=== PATIENT | male | born 1970 | race Caucasian/White ===

== ENCOUNTER 2017-03-30 17:27 | Emergency (ER) | payer BC ==
--- NOTE | 2017-03-30 20:29 | DIAGNOSTIC IMAGING REPORT ---
PROCEDURE: XR CHEST 2 VIEW INDICATION: CHEST PAIN TECHNIQUE: Two views. COMPARISON: None. FINDINGS: The cardiomediastinal contour and central vasculature are within normal limits. The lungs are clear without focal consolidation, pleural effusion, or pneumothorax. The visualized osseous structures are intact. IMPRESSION: 1. Normal chest.
--- NOTE | 2017-03-30 21:48 | ED NURSING NOTES ---
Clinical Report - Nurses [facility] [place] [place] [address] 03/30/2017 17:28 Patient: ABHIJIT CONKLIN TRIAGE Triage time 17:34 Mar 30 2017. Acuity: LEVEL 3. Chief Complaint: ABDOMINAL PAIN, NAUSEA, VOMITING and DIARRHEA. CEASAR COMA SCORE: [place] Coma Scale: 15- eyes open spontaneously (4); best verbal response- oriented x 4 (5); best motor response- obeys commands (6). --17:44 Anitha Marcos R.N. 17:36 03/30/17. BP: 176/98. HR: 89. RR: 18. O2 saturation: 100%. Temp: 98.0 F. Pain level now 0/10. --17:44 Anitha Marcos R.N. Weight: 127.4 kg stated. Height/Length: 71 inches Per Patient. BMI: 39.2. --17:37 Anitha Marcos R.N. Medications Lisinopril Oral. --17:38 Anitha Marcos R.N. Metoprolol Tartrate Oral. --17:40 Anitha Marcos R.N. FLUoxetine HCl Oral. --17:40 Anitha Marcos R.N. [place] 3 Oral. --17:40 Anitha Marcos R.N. Allergies No Known Drug Allergy. --17:40 Anitha Marcos R.N. History Arrived by private vehicle. Historian: patient. Accompanied by family. ( 2 days ago felt out of sorts. This am started to have nausea and vomiting.). He has had nausea, vomiting and diarrhea. Last oral intake by patient was dinner. SOCIAL HX: Never smoker. Regular alcohol use; consumes two liquor. No drug use. No recent travel. No known contact with a sick individual. SELF HARM ASSESSMENT: A self harm assessment was performed. The patient answered "yes" to the question "Have you recently felt down, depressed, or hopeless?" and "no" to the question "Do you have thoughts of harming or killing yourself?". FALL RISK ASSESSMENT: Fall risk assessment completed. No fall risk identified. NUTRITIONAL RISK ASSESSMENT: The nutritional risk assessment revealed no deficiencies. FUNCTIONAL ASSESSMENT: Functional assessment: no impairments noted. LEARNING NEEDS ASSESSMENT: The learning needs assessment revealed no barriers. ABUSE ASSESSMENT: Abuse assessment: (yes) The patient was asked "Do you feel safe in your home?". SKIN INTEGRITY ASSESSMENT: Skin integrity risk assessment completed. No skin integrity risk identified. --17:44 Anitha Marcos R.N. PROBLEMS: Nephrolithiasis. Afib . High blood pressure . Renitis . --17:42 Anitha Marcos R.N. ADDITIONAL SURGERIES: Testicle removal . Vasectomy. --17:42 Anitha Marcos R.N. Interventions ID band on patient. --17:44 Anitha Marcos R.N. PHYSICAL ASSESSMENT To room via wheelchair. GENERAL / NEURO / PSYCH: Appears anxious. ( Very anxious having attacks while triaged). HEENT: Mucous membranes are pink. RESPIRATORY: Respirations not labored. Breath sounds within normal limits. ( Fast breathing). CVS: Normal sinus rhythm noted. Capillary refill less than 2 seconds. GI / : The patient has had nausea and diarrhea. Emesis noted. Bowel sounds within normal limits. SKIN: Skin is warm and dry. --17:45 Anitha Marcos R.N. NURSING PROGRESS NOTES The initial plan of care for this patient includes an assessment with efforts to address patient positioning, appropriate ambient lighting and comfortable environmental temperature. Pulse oximeter and NIBP monitor placed on patient. Patient gowned. Head of bed elevated 75 degrees. Reassurance given. Call light placed in reach. Side rails up x 1. Bed placed in lowest position. Brakes of bed on. --17:45 Anitha Marcos R.N. 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 --17:46 Anitha Marcos R.N. EKG time: (3918). EKG was ordered, performed by a elvira and shown to the PA. --18:00 Dilip Israel ER Tech1 17:56 03/30/2017 Site #1 started via IV in the left antecubital space with an 20g angiocath, with aseptic technique and good blood return; one attempt. Blood drawn: rainbow set. Labeled in the presence of the patient and sent to the lab. Saline lock flushed with 10 mL saline. --18:01 Anitha Marcos R.N. 18:01 03/30/2017 Started bag #1 1000 mL IV Fluids IV NS (Saline); at 999 mL/hr over 1 hour(s) via site #1 via IV pump. Allergies verified and confirmed 5 rights. IV patency established. IV site checked: no pain, redness, or swelling. IV flushed thoroughly pre- and post-medication administration. --18:01 Anitha Marcos R.N. 18:02 03/30/2017 Zofran (Ondansetron HCl) IVP 4 mg given over 2 minute(s) via site #1. Allergies verified and confirmed 5 rights. IV patency established. IV site checked: no pain, redness, or swelling. IV flushed thoroughly pre- and post-medication administration. --18:02 Anitha Marcos R.N. 18:11 03/30/2017 Ativan (LORazepam) IVP 2 mg given over 2 minute(s) via site #1. Allergies verified, confirmed 5 rights and sedative warning given to the patient and patient's family. IV patency established. IV site checked: no pain, redness, or swelling. IV flushed thoroughly pre- and post-medication administration. --18:11 Anitha Marcos R.N. 18:11 03/30/17. BP: 154/96. HR: 86. RR: 22. O2 saturation: 100%. --18:12 Anitha Marcos R.N. 18:30 03/30/2017 Ativan IVP Response: no adverse reaction the patient feels better. 03/30/2017 18:30 BP: 163/84. HR: 94. RR: 18. O2 saturation: 97%. --20:55 Ingrid Gomez R.N. 18:30 03/30/2017 Zofran IVP Response: no adverse reaction. --20:56 Ingrid Gomez R.N. 18:49 03/30/2017 Magnesium Sulfate (Magnesium Sulfate in D5W) IVP 2 gm given over 2 hour(s) via site #1. Allergies verified and confirmed 5 rights. IV patency established. IV site checked: no pain, redness, or swelling. IV flushed thoroughly pre- and post-medication administration. --18:49 Anitha Marcos R.N. 18:49 03/30/2017 IV Fluids IV NS Discontinued: bag #1 infused. Total amount infused: 990 mL. IV patency established. IV site checked: no pain, redness, or swelling. IV flushed thoroughly. --18:49 Anitha Marcos R.N. 18:52 03/30/17. BP: 163/84. HR: 94. RR: 18. O2 saturation: 97%. 18:30 03/30/17. BP: 163/84. HR: 94. RR: 18. O2 saturation: 97%. 18:25 03/30/17. BP: 157/91. HR: 85. RR: 18. O2 saturation: 96%. 18:11 03/30/17. BP: 154/96. HR: 86. RR: 22. O2 saturation: 100%. --18:53 Anitha Marcos R.N. ( Patient states feels much better since anxiety medication given.). --18:54 Anitha Marcos R.N. 19:19 03/30/17. Care transferred and report received (from Evangelista Boss RN). --19:19 Ingrid Gomez R.N. 19:56 03/30/17. --19:56 Ingrid Gomez R.N. 19:55 03/30/17. BP: 157/87. HR: 103. RR: 16. O2 saturation: 98%. Temp: deferred. Pain level now: 0/10. --19:56 Ingrid Gomez R.N. 20:43 03/30/17. ( lab at bedside drawing troponin). --20:43 Ingrid Gomez R.N. 20:51 03/30/17. BP: 160/92 taken on the right arm, while sitting. HR: 98. RR: 15. O2 saturation: 96%. Temp: deferred. Pain level now: 0/10. --20:52 Ingrid Gomez R.N. 20:52 03/30/17. --20:52 Ignrid Gomez R.N. 20:54 03/30/2017 Magnesium Sulfate IVP Response: no adverse reaction (dc'd at 22:52). 03/30/2017 20:51 BP: 160/92. HR: 98. RR: 15. O2 saturation: 96%. Pain level now: 0/10. --20:54 Ingrid Gomez R.N. DISPOSITION / DISCHARGE 21:59 03/30/17. No learning barriers present. Discharge instructions provided and reviewed with the patient and spouse. Reviewed warnings. Reviewed medication(s). Treatments reviewed. Reviewed referrals. Patient and spouse verbalized understanding. Written instructions provided in [place]. The patient was discharged home and accompanied by spouse. He left the Emergency Department ambulatory and via private vehicle. Spouse driving. --21:59 Ingrid Gomez R.N. 21:58 03/30/17. BP: 165/94. HR: 102. RR: 15. O2 saturation: 97%. Temp: deferred. Pain level now: 0/10. --21:59 Ingrid Gomez R.N. Locked/Released at 03/31/2017 3:52 by Ingrid Gomez R.N.
--- NOTE | 2017-03-30 21:48 | ED CLINICAL REPORT ---
Clinical Report - Physicians/Mid Levels [facility] [address] [place] [address] 03/30/2017 17:28 Patient: ABHIJIT CONKLIN Time Seen: 17:54 Rafael 2016. Arrived- By private vehicle. Historian- patient. HISTORY OF PRESENT ILLNESS Chief Complaint: nausea. Is still present. (patient reports vague symptoms of abdominal cramping off and on, nausea, sweats, Since this morning. Had somewhat similar symptoms 2 days previously, that resolved. Patient has a history of anxiety, does take fluoxetine, has been taking central last 9 months. Patient with history of high blood pressure, takes medications at night, has not missed any doses. History of A. fib that resolved with cardioversion, metoprolol, one time about 3 or 4 years previously. patient denies headache.). REVIEW OF SYSTEMS No cough, abdominal pain or vomiting. All systems otherwise negative, except as recorded above. PAST HISTORY Father/ grandfather with h/o MD around age 70. Problems: Nephrolithiasis. Afib . High blood pressure . Renitis . Additional Surgeries: Testicle removal . Vasectomy. Medications: [place] 3 Oral. FLUoxetine HCl Oral. Metoprolol Tartrate Oral. Lisinopril Oral. Allergies: No Known Drug Allergy. ADDITIONAL NOTES The nursing notes have been reviewed. PHYSICAL EXAM Vital Signs: 03/30/2017 17:36 BP: 176/98. HR: 89. RR: 18. O2 saturation: 100%. Temp: 98.0 F. Appearance: Alert. No acute distress. ENT: Ears normal. Nose normal. Pharynx normal. CVS: Heart sounds normal. Respiratory: No respiratory distress. Breath sounds normal. Skin: Skin warm. Normal skin color. Neuro: Oriented X 3. No motor deficit. No sensory deficit. LABS, X-RAYS, AND EKG EKG: EKG time: (1758). No acute process. No acute ischemia. Rate: 82. Normal P waves. Normal KYLIE. Normal QRS complex. Normal axis. Chest X-ray: (IMPRESSION: 1. Normal chest. Electronically Final signed by:Ashley Murray MD 03/30/2017 8:29:36 PM). Laboratory Tests: CBC w Diff: (DALTON: 03/30/2017 17:45) ( [facility] 03/30/2017 18:02) Final results Test Result Flag Units (Reference) WHITE BLOOD COUNT 9.2 K/uL (4.5-11.5) RED BLOOD COUNT 5.13 M/uL (4.50-5.90) HEMOGLOBIN 16.1 gm/dL (13.5-17.5) HEMATOCRIT 47.5 % (41.0-53.0) MEAN CELL VOLUME 93 fL (80-100) MEAN CORPUSCULAR HGB 32 pg (26-34) MEAN CORPUSCULAR HGB CONC 34 g/dL (31-37) RED CELL DISTRIBUTION WIDTH 13.9 % (11.6-14.8) PLATELET COUNT 391 K/uL (150-400) NEUTROPHIL % 54.8 % (50-75) LYMPH % 34.4 % (25-40) MONO % 9.5 % (3-14) EOSINOPHIL % 1.1 % (0-4) BASOPHIL % 0.2 % (0-2) PT with INR: (DALTON: 03/30/2017 17:45) ( [facility] 03/30/2017 18:06) Final results Test Result Flag Units (Reference) INR 1.0 (0.8-1.2) Low Intensity Therapy: INR 1.5-2.0 PT range 18.5-23.1Mod.Intensity Therapy: INR 2.0-3.0 PT range 23.1-31.5High Intensity Therapy: INR 2.5-3.5 PT range 27.4-35.5High Intensity Therapy 2: INR 3.0-4.0 PT range 31.5-39.3 APTT 28 SECONDS (24-34) Troponin-I: (DALTON: 03/30/2017 20:35) ( [facility] 03/30/2017 21:45) Final results Test Result Flag Units (Reference) TROPONIN I <0.05 L ng/mL (0.00-1.5) TROPONIN REFERENCE RANGE:<0.1 NEGATIVE0.1-1.5 INDETERMINANT>1.5 POSITIVE Magnesium: (DALTON: 03/30/2017 20:35) ( [facility] 03/30/2017 21:38) Final results Test Result Flag Units (Reference) MAGNESIUM 1.9 mg/dL (1.8-2.4) CHEM 13 PANEL: (DALTON: 03/30/2017 17:45) ( [facility] 03/30/2017 19:17) Final results Test Result Flag Units (Reference) GLUCOSE 146 H mg/dL (70-110) BUN 14 mg/dL (7-18) CREATININE 1.1 mg/dL (0.6-1.3) Estimated GFR >60 mL/min Estimated GFR- >60 mL/min Note: Persistent reduction over 3 months in eGFR<60 mL/min/1.73 m2 defines CKD. Patients with eGFR values>=60 mL/min/1.73 m2 may also have CKD if evidence ofpersistent proteinuria. Additional information may be foundat www.kidney.org. SODIUM 140 mmol/L (136-145) POTASSIUM 3.8 mmol/L (3.5-5.1) CHLORIDE 99 mmol/L (98-107) CARBON DIOXIDE 22 mmol/L (21-32) CALCIUM 9.9 mg/dL (8.5-10.1) TOTAL PROTEIN 8.5 H g/dL (6.4-8.2) ALBUMIN 4.5 g/dL (3.3-5.0) BILIRUBIN, TOTAL 1.1 H mg/dL (0.0-1.0) ALKALINE PHOSPHATASE 120 H U/L (46-116) AST (SGOT) 119 H U/L (15-37) ALT (SGPT) 101 H U/L (12-78) MAGNESIUM 1.2 L mg/dL (1.8-2.4) CPK 251 U/L (24-260) TROPONIN I 0.08 ng/mL (0.00-1.5) TROPONIN REFERENCE RANGE:<0.1 NEGATIVE0.1-1.5 INDETERMINANT>1.5 POSITIVE . PROGRESS AND PROCEDURES Course of Care: patient history in the anxious, hyperventilating upon arrival to the emergency department, and his symptoms improved. Patient has no abdominal tenderness, his exam is unremarkable and benign, negative neuro exam, denies headache. 2 sets of troponin are unremarkable, EKG unremarkable, chest x-ray unremarkable. No signs of systemic disease processes, this may be anxiety related. Patient with history of hypertension, slightly elevated here, he takes nighttime medications and has not taken his nighttime medications today. 03/30/2017 21:58 BP: 165/94. HR: 102. RR: 15. O2 saturation: 97%. Pain level now: 0/10. 03/30/2017 20:51 BP: 160/92. HR: 98. RR: 15. O2 saturation: 96%. Pain level now: 0/10. Patient is stable. Physical exam findings are improved. Symptoms better. Patient/family counseled. Disposition: Discharged. Condition: good. CLINICAL IMPRESSION Hypertension. Moderate hypomagnesemia. Anxiety reaction. INSTRUCTIONS (YOUR LABS looked great today). Prescription Medications: Ativan 0.5 mg: take 1 orally every 12 hours for 5 days as needed for anxiety. Dispense ten (10). No refill. OTC Medications: Magnesium Citrate (available over the counter): take according to label instructions. Follow-up: Follow up with your doctor in three days. (Electronically signed by Keyona Maddox P.A.-C 03/30/2017 22:09)
--- NOTE | 2017-03-30 21:48 | ED ORDER SUMMARY ---
..... Patient: ABHIJIT CONKLIN OrderSheet [facility] VisitID: [id number] [place] [address] 46y, M Registration Date/Time: 03/30/2017 ORDER SHEET Weight: 127.4 kg (stated) Allergies: No Known Drug Allergy GENERAL ORDERS: Chest 2V Urgent (17:51 03/30/2017 EKoroleva P.A.-C) (Ack 17:52 KHoerner) (18:00 LWhalen R.N.) Cardiac Panel Stat (17:51 03/30/2017 EKoroleva P.A.-C) (Ack 17:52 KHoerner) (18:00 LWhalen R.N.) PTT Urgent (17:51 03/30/2017 EKoroleva P.A.-C) (Ack 17:52 KHoerner) (18:00 LWhalen R.N.) PT with INR Urgent (17:51 03/30/2017 EKoroleva P.A.-C) (Ack 17:52 KHoerner) (18:00 LWhalen R.N.) Magnesium Urgent (18:39 03/30/2017 EKoroleva P.A.-C) (Ack 18:42 KHoerner) (18:42 KHoerner) Troponin-I (new draw at 20:30) Urgent (19:40 03/30/2017 EKoroleva P.A.-C) (Ack 19:41 CHagerty ER Stretcher Helper) (Collected 20:42 RMarsden R.N.) (20:44 CHagerty ER Stretcher Helper) MEDICATION ORDERS: IV FLUIDS: IV NS : initial bolus 1000 mL (1000 mL/hr), then 1000 mL/hr for X1 (NOW); Denzel (17:51 03/30/2017 EKoroleva P.A.-C) (18:01 LWhalen R.N.) Zofran IV 4 mg (NOW) (18:01 03/30/2017 LWhalen R.N. per protocol) (18:02 LWhalen R.N.) Ativan IV 2 mg (HIGH ALERT MEDICATION, NOW) (18:06 03/30/2017 Rosalind Dumont) (18:11 LWshobha R.N.) Magnesium Sulfate IV 2 gm/50mL (HIGH ALERT MEDICATION) (18:39 03/30/2017 Rosalind Dumont) (18:49 LWhaltucker R.N.) ORDER SHEET NOTES: [Electronically signed by Keyona Maddox P.A.-C (22:09 03/30/2017)] [Electronically signed by Ingrid Gomez R.N. (03:52 03/31/2017)] [Electronically locked/signed by Ingrid Gomez R.N. (03:52 03/31/2017)]
--- NOTE | 2017-03-30 21:48 | ED ORDER SUMMARY ---
..... Patient: ABHIJIT CONKLIN OrderSheet [facility] VisitID: [id number] [place] [address] 46y, M Registration Date/Time: 03/30/2017 ORDER SHEET Weight: 127.4 kg (stated) Allergies: No Known Drug Allergy GENERAL ORDERS: Chest 2V Urgent (17:51 03/30/2017 EKoroleva P.A.-C) (Ack 17:52 KHoerner) (18:00 LWhalen R.N.) Cardiac Panel Stat (17:51 03/30/2017 EKoroleva P.A.-C) (Ack 17:52 KHoerner) (18:00 LWhalen R.N.) PTT Urgent (17:51 03/30/2017 EKoroleva P.A.-C) (Ack 17:52 KHoerner) (18:00 LWhalen R.N.) PT with INR Urgent (17:51 03/30/2017 EKoroleva P.A.-C) (Ack 17:52 KHoerner) (18:00 LWhalen R.N.) Magnesium Urgent (18:39 03/30/2017 EKoroleva P.A.-C) (Ack 18:42 KHoerner) (18:42 KHoerner) Troponin-I (new draw at 20:30) Urgent (19:40 03/30/2017 EKoroleva P.A.-C) (Ack 19:41 CHagerty ER Brick Setter Operator) (Collected 20:42 RMarsden R.N.) (20:44 CHagerty ER Brick Setter Operator) MEDICATION ORDERS: IV FLUIDS: IV NS : initial bolus 1000 mL (1000 mL/hr), then 1000 mL/hr for X1 (NOW); Denzel (17:51 03/30/2017 EKoroleva P.A.-C) (18:01 LWhalen R.N.) Zofran IV 4 mg (NOW) (18:01 03/30/2017 LWhalen R.N. per protocol) (18:02 LWhalen R.N.) Ativan IV 2 mg (HIGH ALERT MEDICATION, NOW) (18:06 03/30/2017 Rosalind Dumont) (18:11 LWshobha R.N.) Magnesium Sulfate IV 2 gm/50mL (HIGH ALERT MEDICATION) (18:39 03/30/2017 Rosalind Dumont) (18:49 LWhaltucker R.N.) ORDER SHEET NOTES: [Electronically signed by Keyona Maddox P.A.-C (22:09 03/30/2017)] [Electronically signed by Ingrid Gomez R.N. (03:52 03/31/2017)] [Electronically locked/signed by Ingrid Gomez R.N. (03:52 03/31/2017)]
--- NOTE | 2017-03-30 21:48 | ED CLINICAL REPORT ---
Clinical Report - Physicians/Mid Levels [facility] [address] [place] [address] 03/30/2017 17:28 Patient: ABHIIJT CONKLIN Time Seen: 17:54 Rafael 2016. Arrived- By private vehicle. Historian- patient. HISTORY OF PRESENT ILLNESS Chief Complaint: nausea. Is still present. (patient reports vague symptoms of abdominal cramping off and on, nausea, sweats, Since this morning. Had somewhat similar symptoms 2 days previously, that resolved. Patient has a history of anxiety, does take fluoxetine, has been taking central last 9 months. Patient with history of high blood pressure, takes medications at night, has not missed any doses. History of A. fib that resolved with cardioversion, metoprolol, one time about 3 or 4 years previously. patient denies headache.). REVIEW OF SYSTEMS No cough, abdominal pain or vomiting. All systems otherwise negative, except as recorded above. PAST HISTORY Father/ grandfather with h/o CT around age 70. Problems: Nephrolithiasis. Afib . High blood pressure . Renitis . Additional Surgeries: Testicle removal . Vasectomy. Medications: [place] 3 Oral. FLUoxetine HCl Oral. Metoprolol Tartrate Oral. Lisinopril Oral. Allergies: No Known Drug Allergy. ADDITIONAL NOTES The nursing notes have been reviewed. PHYSICAL EXAM Vital Signs: 03/30/2017 17:36 BP: 176/98. HR: 89. RR: 18. O2 saturation: 100%. Temp: 98.0 F. Appearance: Alert. No acute distress. ENT: Ears normal. Nose normal. Pharynx normal. CVS: Heart sounds normal. Respiratory: No respiratory distress. Breath sounds normal. Skin: Skin warm. Normal skin color. Neuro: Oriented X 3. No motor deficit. No sensory deficit. LABS, X-RAYS, AND EKG EKG: EKG time: (1758). No acute process. No acute ischemia. Rate: 82. Normal P waves. Normal KYLIE. Normal QRS complex. Normal axis. Chest X-ray: (IMPRESSION: 1. Normal chest. Electronically Final signed by:Ashley Murray MD 03/30/2017 8:29:36 PM). Laboratory Tests: CBC w Diff: (DALTON: 03/30/2017 17:45) ( [facility] 03/30/2017 18:02) Final results Test Result Flag Units (Reference) WHITE BLOOD COUNT 9.2 K/uL (4.5-11.5) RED BLOOD COUNT 5.13 M/uL (4.50-5.90) HEMOGLOBIN 16.1 gm/dL (13.5-17.5) HEMATOCRIT 47.5 % (41.0-53.0) MEAN CELL VOLUME 93 fL (80-100) MEAN CORPUSCULAR HGB 32 pg (26-34) MEAN CORPUSCULAR HGB CONC 34 g/dL (31-37) RED CELL DISTRIBUTION WIDTH 13.9 % (11.6-14.8) PLATELET COUNT 391 K/uL (150-400) NEUTROPHIL % 54.8 % (50-75) LYMPH % 34.4 % (25-40) MONO % 9.5 % (3-14) EOSINOPHIL % 1.1 % (0-4) BASOPHIL % 0.2 % (0-2) PT with INR: (DALTON: 03/30/2017 17:45) ( [facility] 03/30/2017 18:06) Final results Test Result Flag Units (Reference) INR 1.0 (0.8-1.2) Low Intensity Therapy: INR 1.5-2.0 PT range 18.5-23.1Mod.Intensity Therapy: INR 2.0-3.0 PT range 23.1-31.5High Intensity Therapy: INR 2.5-3.5 PT range 27.4-35.5High Intensity Therapy 2: INR 3.0-4.0 PT range 31.5-39.3 APTT 28 SECONDS (24-34) Troponin-I: (DALTON: 03/30/2017 20:35) ( [facility] 03/30/2017 21:45) Final results Test Result Flag Units (Reference) TROPONIN I <0.05 L ng/mL (0.00-1.5) TROPONIN REFERENCE RANGE:<0.1 NEGATIVE0.1-1.5 INDETERMINANT>1.5 POSITIVE Magnesium: (DALTON: 03/30/2017 20:35) ( [facility] 03/30/2017 21:38) Final results Test Result Flag Units (Reference) MAGNESIUM 1.9 mg/dL (1.8-2.4) CHEM 13 PANEL: (DALTON: 03/30/2017 17:45) ( [facility] 03/30/2017 19:17) Final results Test Result Flag Units (Reference) GLUCOSE 146 H mg/dL (70-110) BUN 14 mg/dL (7-18) CREATININE 1.1 mg/dL (0.6-1.3) Estimated GFR >60 mL/min Estimated GFR- >60 mL/min Note: Persistent reduction over 3 months in eGFR<60 mL/min/1.73 m2 defines CKD. Patients with eGFR values>=60 mL/min/1.73 m2 may also have CKD if evidence ofpersistent proteinuria. Additional information may be foundat www.kidney.org. SODIUM 140 mmol/L (136-145) POTASSIUM 3.8 mmol/L (3.5-5.1) CHLORIDE 99 mmol/L (98-107) CARBON DIOXIDE 22 mmol/L (21-32) CALCIUM 9.9 mg/dL (8.5-10.1) TOTAL PROTEIN 8.5 H g/dL (6.4-8.2) ALBUMIN 4.5 g/dL (3.3-5.0) BILIRUBIN, TOTAL 1.1 H mg/dL (0.0-1.0) ALKALINE PHOSPHATASE 120 H U/L (46-116) AST (SGOT) 119 H U/L (15-37) ALT (SGPT) 101 H U/L (12-78) MAGNESIUM 1.2 L mg/dL (1.8-2.4) CPK 251 U/L (24-260) TROPONIN I 0.08 ng/mL (0.00-1.5) TROPONIN REFERENCE RANGE:<0.1 NEGATIVE0.1-1.5 INDETERMINANT>1.5 POSITIVE . PROGRESS AND PROCEDURES Course of Care: patient history in the anxious, hyperventilating upon arrival to the emergency department, and his symptoms improved. Patient has no abdominal tenderness, his exam is unremarkable and benign, negative neuro exam, denies headache. 2 sets of troponin are unremarkable, EKG unremarkable, chest x-ray unremarkable. No signs of systemic disease processes, this may be anxiety related. Patient with history of hypertension, slightly elevated here, he takes nighttime medications and has not taken his nighttime medications today. 03/30/2017 21:58 BP: 165/94. HR: 102. RR: 15. O2 saturation: 97%. Pain level now: 0/10. 03/30/2017 20:51 BP: 160/92. HR: 98. RR: 15. O2 saturation: 96%. Pain level now: 0/10. Patient is stable. Physical exam findings are improved. Symptoms better. Patient/family counseled. Disposition: Discharged. Condition: good. CLINICAL IMPRESSION Hypertension. Moderate hypomagnesemia. Anxiety reaction. INSTRUCTIONS (YOUR LABS looked great today). Prescription Medications: Ativan 0.5 mg: take 1 orally every 12 hours for 5 days as needed for anxiety. Dispense ten (10). No refill. OTC Medications: Magnesium Citrate (available over the counter): take according to label instructions. Follow-up: Follow up with your doctor in three days. (Electronically signed by Keyona Maddox P.A.-C 03/30/2017 22:09)
--- NOTE | 2017-03-31 03:53 | ED DISCHARGE INSTRUCTIONS ---
Patient: ABHIJIT CONKLIN General Instructions Formerly [facility] VisitID: [id number] [place] [address] 46y, M Registration Date/Time: 03/30/2017 Hypertension. Moderate hypomagnesemia. Anxiety reaction. INSTRUCTIONS (YOUR LABS looked great today). Prescription Medications: Ativan 0.5 mg: take 1 orally every 12 hours for 5 days as needed for anxiety. Dispense ten (10). No refill. OTC Medications: Magnesium Citrate (available over the counter): take according to label instructions. Follow-up: Follow up with your doctor in three days. ADDITIONAL INFORMATION High Blood Pressure --Established High Blood Pressure (Hypertension) is a chronic disease. The cause is unknown in most cases. It can usually be controlled with lifestyle changes and/or medicines. Symptoms of high blood pressure may include headache, dizziness, visual changes, chest pain and shortness of breath. Sometimes it causes no symptoms at all. However, even if there are no symptoms, untreated high blood pressure increases the risk of heart attack, also known as acute myocardial infarction, or AMI, and stroke. It is a serious health risk and should not be ignored. A normal blood pressure is 120/80 or less. The first (top) number is the "systolic" pressure. The second (bottom) number is the "diastolic" pressure. Hypertension exists when either the top number is 140 or higher, OR the bottom number is 90 or higher on repeated measurements. Home Care: All patients with high blood pressure should do the following to lower their pressure. If you are on medicines, then these methods may reduce or eliminate your need for medicines in the future. Begin a weight loss program if you are overweight. Reduce your salt intake. Avoid high salt foods (olives, pickles, smoked meats, salted potato chips, etc.). Do not add salt to your food at the table. Use only small amounts of salt when cooking. Begin an exercise program. Discuss with your doctor what type of exercise program would be best for you. It doesn't have to be difficult. Even brisk walking for 20 minutes three times a week is a good form of exercise. Avoid medicines which contain heart stimulants. This includes many cold and sinus decongestant pills and sprays as well as diet pills. Check the warnings about hypertension on the label. Stimulants such as amphetamine or cocaine could be lethal for someone with hypertension. Never take these. Limit your caffeine intake or switch to caffeine-free products. Stop smoking. If you are a long-time smoker, this can be hard. Enroll in a stop-smoking program to improve your chance of success. Learning how to handle stress better is an important part of any program to lower blood pressure. Learn about relaxation methods such as meditation, yoga or biofeedback. If medicines were prescribed, take them exactly as directed. Missing doses may cause your blood pressure get out of control. Consider buying an automatic blood pressure machine (available at most pharmacies). Use this to monitor your blood pressure at home and report the results to your doctor. Follow Up: Regular visits to your own physician for blood pressure checks and medicine adjustment is an important part of your care. Make a follow-up appointment as directed by our staff. Get Prompt Medical Attention if any of the following occur: Chest pain or shortness of breath Severe headache Throbbing or rushing sound in the ears Nosebleed Sudden severe abdominal pain Extreme drowsiness, confusion or fainting Dizziness or vertigo (dizziness with spinning sensation) Weakness of an arm or leg or one side of the face Difficulty with speech or vision Stress Reaction Anxiety is the feeling we all get when we think something bad might happen. It is a normal response to stress and usually causes only a mild reaction. When anxiety becomes more severe, emotions may interfere with daily life. In some cases, you may not even be aware of what it is youre anxious about! During an anxiety reaction, you may feel like you are helpless, nervous, depressed or irritable. Your body may show signs of anxiety in many ways. You may experience dry mouth, shakiness, dizziness, weakness, trouble breathing, chest pressure, headache, nausea, diarrhea, tiredness, inability to sleep or sexual problems. Home Care: 1) Try to locate the sources of stress in your life. They may not be obvious! These may include: -- Daily hassles of life which pile up (traffic jams, missed appointments, car troubles, etc.) -- Major life changes, both good (new baby, job promotion) and bad (loss of job, loss of loved one) -- Overload: feeling that you have too many responsibilities and can't take care of all of them at once -- Feeling helpless, feeling that your problems are beyond what youre able to solve 2) Notice how your body reacts to stress. Learn to listen to your body signals. This will help you take action before the stress becomes severe. 3) When you can, do something about the source of your stress. (Avoid hassles, limit the amount of change that happens in your life at one time and take a break when you feel overloaded). 4) Unfortunately, many stressful situations cannot be avoided. It is necessary to learn HOW TO MANAGE STRESS better. There are many proven methods that will reduce your anxiety. These include simple things like exercise, good nutrition and adequate rest. Also, there are certain techniques that are helpful: relaxation and breathing exercises, visualization, biofeedback and meditation. For more information about this, consult your doctor or go to a local bookstore and review the many books and tapes available on this subject. Follow Up If you feel that your anxiety is not responding to self-help measures, contact your doctor or make an appointment with a counselor. Get Prompt Medical Attention if any of the following occur: -- Your symptoms get worse -- Chest pain or trouble breathing -- Severe headache not relieved by rest and mild pain reliever -- Rapid or irregular heartbeat, fainting Panic Attack A panic attack is an extreme fear reaction that comes on for no apparent reason. Symptoms may include pounding or racing heartbeat, shortness of breath, dizziness, weakness and sweating. There is usually a fear that something terrible will happen or that you may . The attack may last a few minutes up to a few hours. Between attacks things will seem quite normal. This condition has a psychological cause and can be treated with the help of a therapist or psychiatrist. Medication is often used and can be very helpful for this problem. Home Care: Try to identify the sources of stress in your life. It may not be obvious! These may include: Daily hassles of life which pile up (traffic jams, missed appointments, car troubles, etc.). Major life changes, both good (new baby, job promotion) and bad (loss of job, loss of loved one). Overload: feeling that you have too many responsibilities and can't take care of everything at once. Helplessness: feeling like your problems are too much for you to handle. Notice how your body reacts to stress. Learn to listen to your body signals so that you can take action before the stress becomes severe. When possible, AVOID or REDUCE THE CAUSE OF STRESS. Avoid hassles, limit the amount of change that is happening in your life at one time or take a break when you feel overloaded. Unfortunately, many stressful situations cannot be avoided. Therefore, it is necessary to LEARN HOW TO MANAGE STRESS better. There are many proven methods that work and will reduce your anxiety. These include simple things like exercise, good nutrition and adequate rest. Also, there are certain techniques that are helpful: relaxation and breathing exercises, visualization, biofeedback, meditation or simply taking some time-out to clear your mind. For more information about this, consult your doctor or go to a local bookstore and review the many books and tapes available on this subject. Follow Up with your doctor or a therapist as advised. Get Prompt Medical Attention if any of the following occur: Worsening of your symptoms to the point of feeling [id number] A change in the type of pain: if it feels different, becomes more severe, lasts longer, or begins to spread into your shoulder, arm, neck, jaw or back Shortness of breath or increased pain with breathing Increasing feeling of weakness or dizziness Fainting Cough with dark colored sputum (phlegm) or blood Fever of 100.4F (38C) or higher, or as directed by your healthcare provider Swelling, pain or redness in one leg Hyperventilation Syndrome Hyperventilation Syndrome is a condition in which you lose control of your breathing. You may find yourself breathing too fast and/or too deep. This can be triggered by pain, anxiety and emotional stress. If hyperventilation continues for more than a few minutes, it can lead to a number of frightening symptoms, such as: Numbness and tingling of the hands, feet and face Clenching of the fingers or toes Dizziness Feeling like you cannot get enough air Chest pains Fainting or feeling like you are going to faint Once these symptoms begin, it is often hard to stop them because they lead to a cycle of more anxiety and more hyperventilation. It is important to understand that this is not a life-threatening condition and it will pass once you are able to relax. Relaxation and stress management methods can be learned and practiced in advance. These can help in the event of a future attack. Home Care: 1) Rest today until feeling back to normal. 2) If symptoms return: Sit or lie down. Remember that what is happening to you is temporary and will pass. Use the relaxation methods you have learned. It is no longer recommended to breathe into a paper bag. Follow Up with your doctor or as directed by our staff if symptoms recur. Get Prompt Medical Attention if any of the following occur: Increasing shortness of breath Fever of 100.0 F (38 C) or higher, or as directed by your healthcare provider Coughing up blood Chest pain that is made worse with each breath Redness, pain or swelling of the leg Ringing in your ears, Severe headache Weakness or fainting Lorazepam Oral tablet What is this medicine? LORAZEPAM (jeb A ze jason) is a benzodiazepine. It is used to treat anxiety. How should I use this medicine? Take this medicine by mouth with a glass of water. Follow the directions on the prescription label. If it upsets your stomach, take it with food or milk. Take your medicine at regular intervals. Do not take it more often than directed. Do not stop taking except on the advice of your doctor or health director of healthcare systems. Talk to your driver license technician regarding the use of this medicine in children. Special care may be needed. What side effects may I notice from receiving this medicine? Side effects that you should report to your doctor or health director of healthcare systems as soon as possible: changes in vision confusion depression mood changes, excitability or aggressive behavior movement difficulty, staggering or jerky movements muscle cramps restlessness weakness or tiredness Side effects that usually do not require medical attention (report to your doctor or health director of healthcare systems if they continue or are bothersome): constipation or diarrhea difficulty sleeping, nightmares dizziness, drowsiness headache nausea, vomiting What may interact with this medicine? barbiturate medicines for inducing sleep or treating seizures, like phenobarbital clozapine medicines for depression, mental problems or psychiatric disturbances medicines for sleep phenytoin probenecid theophylline valproic acid What if I miss a dose? If you miss a dose, take it as soon as you can. If it is almost time for your next dose, take only that dose. Do not take double or extra doses. Where should I keep my medicine? Keep out of the reach of children. This medicine can be abused. Keep your medicine in a safe place to protect it from theft. Do not share this medicine with anyone. Selling or giving away this medicine is dangerous and against the law. Store at room temperature between 20 and 25 degrees C (68 and 77 degrees F). Protect from light. Keep container tightly closed. Throw away any unused medicine after the expiration date. What should I tell my health care provider before I take this medicine? They need to know if you have any of these conditions: alcohol or drug abuse problem bipolar disorder, depression, psychosis or other mental health condition glaucoma kidney or liver disease lung disease or breathing difficulties myasthenia gravis Parkinson's disease seizures or a history of seizures suicidal thoughts an unusual or allergic reaction to lorazepam, other benzodiazepines, foods, dyes, or preservatives or trying to get breast-feeding What should I watch for while using this medicine? Visit your doctor or health director of healthcare systems for regular checks on your progress. Your body may become dependent on this medicine, ask your doctor or health director of healthcare systems if you still need to take it. However, if you have been taking this medicine regularly for some time, do not suddenly stop taking it. You must gradually reduce the dose or you may get severe side effects. Ask your doctor or health director of healthcare systems for advice before increasing or decreasing the dose. Even after you stop taking this medicine it can still affect your body for several days. You may get drowsy or dizzy. Do not drive, use machinery, or do anything that needs mental alertness until you know how this medicine affects you. To reduce the risk of dizzy and fainting spells, do not stand or sit up quickly, especially if you are an older patient. Alcohol may increase dizziness and drowsiness. Avoid alcoholic drinks. Do not treat yourself for coughs, colds or allergies without asking your doctor or health director of healthcare systems for advice. Some ingredients can increase possible side effects. You have been given the following additional information: Hypertension, Established Anxiety Reaction Panic Attack Hyperventilation Syndrome Lorazepam Oral tablet (Electronically signed by Keyona Maddox P.A.-C 03/30/2017 22:09)
--- NOTE | 2017-03-31 03:53 | ED MAR SUMMARY ---
..... Medication Administration Record [facility] [address] [place] [address] Patient: ABHIJIT CONKLIN Visit ID: [id number] 46y, M Weight: 127.4 kg Height/Length: 71 in BMI: 39.2 ALLERGIES: No Known Drug Allergy Start 18:01 03/30/2017 Anitha Marcos R.N., Stop 18:49 03/30/2017 Anitha Marcos R.N. Medication Administered: IV NS (SALINE), Dose: IV Fluids over 1 hour(s), Rate: 999 mL/hr, Dispensed: 1000 mL bag, Site: #1 left AC. Medication Ordered: IV NS : initial bolus 1000 mL (1000 mL/hr), then 1000 mL/hr for X1 (NOW); Denzel. Given 18:02 03/30/2017 Anitha Marcos R.N. Medication Administered: ZOFRAN [IVP] (ONDANSETRON HCL), Dose: 4 mg IVP over 2 minute(s), Site: #1 left AC. Medication Ordered: Zofran IV 4 mg (NOW). Given 18:11 03/30/2017 Anitha Marcos R.N. Medication Administered: ATIVAN [IVP] (LORAZEPAM), Dose: 2 mg IVP over 2 minute(s), Site: #1 left AC. Medication Ordered: Ativan IV 2 mg (HIGH ALERT MEDICATION, NOW). Given 18:49 03/30/2017 Anitha Marcos R.N. Medication Administered: MAGNESIUM SULFATE [IVP] (MAGNESIUM SULFATE IN D5W), Dose: 2 gm IVP over 2 hour(s), Site: #1 left AC. Medication Ordered: Magnesium Sulfate IV 2 gm/50mL (HIGH ALERT MEDICATION).
--- NOTE | 2017-03-31 03:53 | ED MAR SUMMARY ---
..... Medication Administration Record [facility] [address] [place] [address] Patient: ABHIJIT CONKLIN Visit ID: [id number] 46y, M Weight: 127.4 kg Height/Length: 71 in BMI: 39.2 ALLERGIES: No Known Drug Allergy Start 18:01 03/30/2017 Anitha Marcos R.N., Stop 18:49 03/30/2017 Anitha Marcos R.N. Medication Administered: IV NS (SALINE), Dose: IV Fluids over 1 hour(s), Rate: 999 mL/hr, Dispensed: 1000 mL bag, Site: #1 left AC. Medication Ordered: IV NS : initial bolus 1000 mL (1000 mL/hr), then 1000 mL/hr for X1 (NOW); Denzel. Given 18:02 03/30/2017 Anitha Marcos R.N. Medication Administered: ZOFRAN [IVP] (ONDANSETRON HCL), Dose: 4 mg IVP over 2 minute(s), Site: #1 left AC. Medication Ordered: Zofran IV 4 mg (NOW). Given 18:11 03/30/2017 Anitha Marcos R.N. Medication Administered: ATIVAN [IVP] (LORAZEPAM), Dose: 2 mg IVP over 2 minute(s), Site: #1 left AC. Medication Ordered: Ativan IV 2 mg (HIGH ALERT MEDICATION, NOW). Given 18:49 03/30/2017 Anitha Marcos R.N. Medication Administered: MAGNESIUM SULFATE [IVP] (MAGNESIUM SULFATE IN D5W), Dose: 2 gm IVP over 2 hour(s), Site: #1 left AC. Medication Ordered: Magnesium Sulfate IV 2 gm/50mL (HIGH ALERT MEDICATION).
--- NOTE | 2017-03-31 03:53 | ED MED RECONCILIATION SUMMARY ---
Patient: ABHIJIT CONKLIN Medication Reconciliation Report [facility] VisitID: [id number] [address] [place] [address] 46y, M Registration Date/Time: 03/30/2017 Weight: 127.4 kg Height/Length: 71 in. BMI: 39.2 ALLERGIES: No Known Drug Allergy The patient's Home Medications are listed below: THE FOLLOWING MEDICATIONS NEED TO BE RECONCILED: FLUoxetine HCl Oral Lisinopril Oral Metoprolol Tartrate Oral Cosby 3 Oral The source(s) of the original Home Medication information: Not obtained. The following Medications were given to the patient in the Emergency Department: IV NS IV Fluids bolus 0, then 999 mL/hr, administered: 03/30/2017 6:01:00 PM Zofran [IVP] IVP 4 mg, administered: 03/30/2017 6:02:00 PM Ativan [IVP] IVP 2 mg, administered: 03/30/2017 6:11:00 PM Magnesium Sulfate [IVP] IVP 2 gm, administered: 03/30/2017 6:49:00 PM The following Medications were prescribed to the patient: Ativan 0.5 mg: take 1 orally every 12 hours for 5 days as needed for anxiety. Dispense ten (10). No refill. -- Keyona Maddox, P.A.-C Magnesium Citrate (available over the counter): take according to label instructions. -- Keyona Maddox, P.A.-C
--- NOTE | 2017-03-31 03:53 | ED MED RECONCILIATION SUMMARY ---
Patient: ABHIJIT CONKLIN Medication Reconciliation Report [facility] VisitID: [id number] [address] [place] [address] 46y, M Registration Date/Time: 03/30/2017 Weight: 127.4 kg Height/Length: 71 in. BMI: 39.2 ALLERGIES: No Known Drug Allergy The patient's Home Medications are listed below: THE FOLLOWING MEDICATIONS NEED TO BE RECONCILED: FLUoxetine HCl Oral Lisinopril Oral Metoprolol Tartrate Oral [place] 3 Oral The source(s) of the original Home Medication information: Not obtained. The following Medications were given to the patient in the Emergency Department: IV NS IV Fluids bolus 0, then 999 mL/hr, administered: 03/30/2017 6:01:00 PM Zofran [IVP] IVP 4 mg, administered: 03/30/2017 6:02:00 PM Ativan [IVP] IVP 2 mg, administered: 03/30/2017 6:11:00 PM Magnesium Sulfate [IVP] IVP 2 gm, administered: 03/30/2017 6:49:00 PM The following Medications were prescribed to the patient: Ativan 0.5 mg: take 1 orally every 12 hours for 5 days as needed for anxiety. Dispense ten (10). No refill. -- Keyona Maddox, P.A.-C Magnesium Citrate (available over the counter): take according to label instructions. -- Keyona Maddox, P.A.-C
== END 2017-03-30 21:59 | disposition home or self-care (01) ==
LOC: ED SRH 17:27
DX: I10 Essential (primary) hypertension (principal); E83.42 Hypomagnesemia; F41.1 Generalized anxiety disorder; I48.91 Unspecified atrial fibrillation; Z79.899 Other long term (current) drug therapy
CPT/HCPCS: 90074; 90100; 90616; 92610; 92720; 94001; 94060; 95059